=== PATIENT | male | born 1940 | race Caucasian/White ===

== ENCOUNTER 2020-03-29 11:23 | Emergency (ER) | payer MEDICARE, SELFPAY ==
--- NOTE | ~2020-03-29 | CT_ITS ---
EXAMINATION: CTA chest PE protocol EXAM DATE: 03/29/2020 13:17 INDICATION: Chest pain, dyspnea, elevated d-dimer. Shortness of breath. TECHNIQUE: Spiral CTA of the chest (pulmonary arteries) was performed with 100 cc Omnipaque 350 intr avenous contrast injection. Images were acquired during the pulmonary arterial phase. Coronal maxi mum intensity projection 3D-reconstructions were created by the technologist on dedicated workstation . Axial, coronal and sagittal reformatted images were reviewed. The dose-length product (DLP) for t his examination was 558.22 mGy-cm. The exposure was tailored according to patient size (auto mA exp osure control), and iterative reconstruction (ASIR) was used as additional dose reduction technique. There is no prior study for comparison. FINDINGS: There is good pulmonary arterial opacification. The main, central pulmonary arteries are di lated which can indicate elevated pulmonary arterial pressure, pulmonary arterial hypertension. Pulm onary arteries are well opacified and without intraluminal filling defects. No thoracic aortic diss ection. There is mild emphysema. Left basilar linear atelectasis. There are no pleural or pericardia l effusions. Tracheobronchial tree is patent. There is no mediastinal, hilar or axillary lymphade nopathy. There is no pneumothorax. Mild cardiomegaly. There is mild coronary arterial calcificat ion, arterial sclerosis. There is left liver lobe cyst measuring 3 cm. Cholecystectomy clips. Patie nt has diffuse idiopathic skeletal hyperostosis (DISH). There are no osteoblastic or osteolytic les ions identified. There is small sliding gastroesophageal hiatal hernia. IMPRESSION: 1. Dilated pulmonary arteries without emboli. 2. Mild emphysema. 3. Mild cardiomegaly. 4. Small hiatal hernia. Reviewed, dictated and finalized at location A.
--- NOTE | ~2020-03-29 | XR_ITS ---
EXAMINATION: XR chest 2V EXAM DATE: 03/29/2020 12:14 INDICATION: Mid chest pain. TECHNIQUE: Frontal and lateral projections of the chest obtained and reviewed. Comparison is made to prior examination from 02/03/2011. FINDINGS: Mild chronic hyperinflation. The lungs are clear. There are no pleural effusions. The ca rdiomediastinal silhouette is within normal limits. There is no pneumothorax suspected. Patient has diffuse idiopathic skeletal hyperostosis (DISH). There are cholecystectomy clips. IMPRESSION: No acute cardiopulmonary findings. Reviewed, dictated and finalized at location A.
--- NOTE | 2020-03-29 11:27 | ECG_ITS ---
Measurements Intervals [place] Rate: 64 P: 7 IL: 175 QRS: -19 QRSD: 93 T: 23 QT: 397 QTc: 411 Interpretive Statements SINUS RHYTHM INCOMPLETE RIGHT BUNDLE BRANCH BLOCK BASELINE ARTIFACT- II, III, AVR, AVL, AVF BORDERLINE ECG Electronically Signed On 03-29-2020 11:44:17 CDT by Caesar Daniels D.O.
[2020-03-29 11:30] VITALS: BP 189/105; PULSE 66; RESP 24; TEMP 37; O2SAT 95
[2020-03-29 12:06] LABS: Hematocrit 41.7 % (37.0-46.0); Hemoglobin 14.2 g/dL (12.4-15.3); Mean Corpuscular HGB Conc 34.1 g/dL (32.0-36.0); Mean Corpuscular Hemoglobin 32.8 pg (27.0-31.0); Mean Corpuscular Volume 96.3 fL (78.0-102.0); Platelet Count Result 244 K/mm3 (150-420); Red Blood Count 4.33 M/mm3 (4.70-6.10); Red Cell Distribution Width 12.5 % (11.6-14.4); White Blood Count 7.3 K/mm3 (4.8-10.8)
[2020-03-29] MEDS: PANTOPRAZOLE SODIUM IV 40 MG VIAL IV PUSH (12:20)
[2020-03-29 12:24] LABS: Partial Thromboplastin Time 25.3 SEC (22.3-31.6); Prothrombin Time 10.1 Seconds (9.64-11.0)
[2020-03-29 12:28] LABS: D Dimer 1.15 mg/L (0.19-0.50)
[2020-03-29 12:45] LABS: BNP 39 pg/mL (0-100)
[2020-03-29 12:50] LABS: Alanine Aminotransferase 25 U/L (16-63); Albumin Level 3.3 g/dL (3.4-5.0); Alkaline Phosphatase 76 U/L (46-116); Anion Gap 14.8 mmol/L (7-16); Aspartate Amino Transferase 20 U/L (15-37); Bilirubin,Total 0.6 mg/dL (0.00-1.00); Blood Urea Nitrogen 21 mg/dL (7-18); Calcium 8.6 mg/dL (8.5-10.1); Carbon Dioxide 25 mmol/L (21-32); Chloride 105 mmol/L (98-108); Estimated Glomerular Filt Rate > 60; Glucose 99 mg/dL (70-99); Osmolality Calculated 295 mOsm/kg (285-295); Potassium 3.8 mmol/L (3.5-5.1); Sodium 141 mmol/L (136-145); Total Protein 6.6 g/dL (6.4-8.2); Troponin I 0.04 ng/mL (0.00-0.056)
[2020-03-29 12:58] LABS: Lipase 85 U/L (73-393)
[2020-03-29 13:00] VITALS: BP 136/71; PULSE 55; RESP 21; O2SAT 95
--- NOTE | 2020-03-29 13:39 | ED.CHESTPAIN ---
HPI - Chest Pain General Chief Complaint: Chest Pain Stated Complaint: chest pains sunday and slight today Source: patient and family Mode of arrival: ambulatory Limitations: no limitations History of Present Illness HPI narrative: patient is a 79-year-old gentleman that presents with some off and on hurt epigastric and radiating into his upper neck area currently has resolved with a episode of shortness of breath some epigastric tenderness and some mild burning but does describe his pain is a pressure-like sensation that had started Sunday that resolved and recurred earlier this morning and currently has resolved. Has a history of hypertension hyperlipidemia and mild dementia. complaint: chest pain Onset (ago): day(s) Timing of current episode: episodic Prior episodes: Yes Onset: during rest Pain location: epigastric and subxiphoid Pain radiation: none Severity: similar to previous episodes ( currently no chest pain or shortness of breath) Quality: tightness and aching Relieving factors: nothing Exacerbating factors: nothing Related Data Home Medications Medication Instructions Recorded Confirmed lovastatin 40 mg PO DAILY 07/25/19 03/29/20 verapamil 120 mg PO DAILY 07/25/19 03/29/20 donepezil 5 mg PO DAILY 03/29/20 03/29/20 Allergies Allergy/AdvReac Type Severity Reaction Status Date / Time No Known Allergies Allergy Unverified 07/25/19 08:29 Review of Systems Review of Systems: All systems reviewed & are unremarkable except as noted in HPI and below PMFSH Past Medical History Medical History Dementia GERD (gastroesophageal reflux disease) HLD (hyperlipidemia) Vertigo Surgical History Surgical History H/O left knee surgery H/O right knee surgery Hx of cholecystectomy Family History Family History Sibling Family history of malignant neoplasm of urinary bladder Family history of cardiovascular disease Grandparent Acute myocardial infarction Cerebrovascular accident Father Acute myocardial infarction, Onset Age: 64 Mother Family history of malignant neoplasm, Onset Age: 86 Social History Social History Smoking status: Never smoker Second hand tobacco smoke exposure: No Alcohol intake: never Additional living arrangements comments: with his Exam Const: General: no acute distress and alert HENMT: Head: normal to inspection Eyes: Conjunctivae: conjunctivae normal Pupils: Equal, round and reactive pupils present Neck: Neck: normal visual inspection, no lymphadenopathy and no meningeal signs Chest: Chest palpation & inspection: normal inspection of the chest Resp: Effort & Inspection: normal respiratory effort Auscultation: clear to auscultation bilaterally Cardio: Rate: regular rate Rhythm: regular rhythm GI: Auscultation: normal bowel sounds Urinary Catheter: Urinary Catheter: patent and draining Skin: General skin exam: normal color Rashes: no rashes Neuro: General: patient oriented x3, moves all extremities, no meningeal signs and no focal motor deficits Extrem: General: normal to inspection and no pedal edema Psych: Appearance: grossly normal Mental Status: mental status grossly normal Course Course Emergency Course: Patient currently resting comfortably, after the IV contrast for CTA did develop some mild dizziness which his hence subsided. Currently there is no chest pain no shortness of breath no nausea vomiting or abdominal pain instructed patient and family to follow-up with primary care physician as soon as possible for further outpatient evaluation. Vital Signs Vital signs: Vital Signs Temperature 37.0 C 03/29/20 11:30 Pulse Rate 66 03/29/20 11:30 Respiratory Rate 24 H 07
[2020-03-29 13:40] VITALS: BP 143/81; PULSE 57; O2SAT 95
== END 2020-03-29 13:53 | disposition home or self-care (01) ==
PROVIDERS: Emergency Provider Emergency Medicine; PCP Physician Assistant
DX: R07.9 Chest pain, unspecified (principal); R06.02 Shortness of breath; K21.9 Gastro-esophageal reflux disease without esophagitis; E78.5 Hyperlipidemia, unspecified
CPT/HCPCS: 36415; 71046; 71275; 80053; 83690; 83880; 84484; 85027; 85380; 85610; 85730; 93005; 96374; 99284; C9113; Q9965

== ENCOUNTER 2020-04-15 13:53 | Outpatient (CLI) | payer MEDICARE, SELFPAY ==
--- NOTE | ~2020-04-15 | XR_ITS ---
XR knee RT 2V DATE: 04/15/2020 14:16 INDICATION: Right knee pain TECHNIQUE: AP and lateral views COMPARISON: None FINDINGS: Status post medial compartment joint replacement. There is moderate osteoarthritic change at the lateral and patellofemoral compartments. No fracture or dislocation. There is mild suprapatellar knee joint effusion. Approximately 1.8 x 3.8 mm calcification overlying the suprapatellar bursa, possibly an intra-articular loose body versus sof t tissue calcification. 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
== END 2020-04-15 13:54 | disposition home or self-care (01) ==
LOC: CHSIMG 13:54
PROVIDERS: PCP Physician Assistant; Visit Provider Physician Assistant
DX: M25.561 Pain in right knee (principal)
CPT/HCPCS: 73560

== ENCOUNTER 2020-05-24 07:56 | Outpatient (CLI) | payer MEDICARE, SELFPAY ==
--- NOTE | ~2020-05-24 | NM_ITS ---
EXAMINATION: NM leonora stress w perfusion DATE: 05/24/2020 12:47 INDICATION: Chest pain TECHNIQUE: Rest images were obtained following intravenous administration of 9.4 mCi Tc99m tetrofosmi n (Myoview). The patient was infused intravenously with Lexiscan (Regadenoson). Then, 28 mCi Tc99m te trofosmin (Myoview) was administered intravenously, and stress images were obtained. Data was reconst ructed into short axis and horizontal and vertical long axis SPECT images. Gated SPECT images were al so obtained. COMPARISON: None. FINDINGS: Borderline decreased perfusion at the apical inferior and apical lateral segments on the st ress images which is significantly smaller and less severe than on the rest images which favors diaph ragmatic attenuation artifact over infarct. No reversible ischemia. There is normal left ventricular chamber size, wall motion and ejection fraction. Left ventricular ejection fraction measures 70%. IMPRESSION: 1. Small region of either mild infarct or more likely diaphragmatic attenuation artifact at the apica l lateral and apical inferior segments. No reversible ischemia. 2. Left ventricular ejection fraction measuring 70%. Reviewed, dictated and finalized at location A. IMPRESSION: 1. Small region of either mild infarct or more likely diaphragmatic attenuation artifact at the apical lateral and apical inferior segments. No reversible isc hemia. 2. Left ventricular ejection fraction measuring 70%.
--- NOTE | 2020-05-24 08:18 | ECHO_ITS ---
Patient Info Name: Darrell Clark Age: 79 years : 1940 Gender: Male Ht: 68 in Wt: 295 lbs BSA: 2.60 m2 HR: 60 bpm BP: 175 / 88 mmHg Technical Quality: Good Exam Date: 05/24/2020 8:38 AM Exam Location: [facility] Pulmonary Patient Status: Outpatient Admit Date: 05/24/2020 Staff Ordering Physician: Caesar Daniels DO Attending Provider: Caesar Daniels DO Referring Physician: Jeremiah KIRAN; Exam Type: CA echo doppler color flow Study Info Indications R06.00 - Dyspnea, unspecified Complete two-dimensional, color flow and Doppler transthoracic echocardiogram is performed. Summary 1. Complete two-dimensional, color flow and Doppler transthoracic echocardiogram is performed. 2. Left ventricular chamber dimension is normal. 3. Left ventricular systolic function is normal, estimated at 60-65%. 4. The left ventricular diastolic function is grade I diastolic dysfunction. 5. E/e' 12 is mildly elevated. 6. Left atrial chamber dimension is mildly enlarged. 7. There is mild aortic valve sclerosis. 8. There is trace aortic valve regurgitation. 9. The mitral valve has mildly calcified annulus. 10. There is trace mitral valve regurgitation. 11. There is mild tricuspid valve regurgitation. 12. Mild pulmonary hypertension, estimated pulmonary arterial systolic pressure is 45 mmHg. Left Ventricle E/e' 12 is mildly elevated. Left ventricular chamber dimension is normal. Left ventricular systolic function is normal, estimated at 60-65%. The left ventricular diastolic function is grade I diastolic dysfunction. Right Ventricle Right ventricular chamber dimension is normal. Right ventricular systolic function is normal. Left Atria Left atrial chamber dimension is mildly enlarged. Right Atria Right atrial chamber dimension is normal. Aortic Valve The aortic valve is trileaflet. There is mild aortic valve sclerosis. There is no aortic valve stenosis. There is trace aortic valve regurgitation. Pulmonic Valve There is no pulmonic regurgitation. Mitral Valve The mitral valve has mildly calcified annulus. There is no mitral valve stenosis. There is trace mitral valve regurgitation. Tricuspid Valve There is mild tricuspid valve regurgitation. Mild pulmonary hypertension, estimated pulmonary arterial systolic pressure is 45 mmHg. Pericardium/Pleural There is no pericardial effusion. Inferior Vena Cava Normal inferior vena cava with >50% collapse upon inspiration consistent with normal right atrial pressure, 5 mmHg. Aorta The aortic root size at the sinus of Valsalva is normal. Left Ventricular Outflow Tract Name Value Normal LVOT 2D LVOT Diameter 2.0 cm LVOT Doppler LVOT Peak Gradient 5 mmHg LVOT Mean Gradient 3 mmHg LVOT VTI 28 cm LVOT VTI/AV VTI Ratio 0.7 LVOT Stroke Volume 88 ml LVOT CO 4.5 l/min LVOT CI 1.7 l/min/m2 Pulmonic Valve
--- NOTE | 2020-05-24 08:18 | EST_ITS ---
Patient Info Name: Drarell Clark Age: 79 years : 1940 Gender: Male Ht: 68 in Wt: 195 lbs BSA: 2.08 m2 Exam Date: 05/24/2020 10:50 AM Exam Location: [facility] Stress Patient Status: Outpatient Admit Date: 05/24/2020 Staff Ordering Physician: Caesar Portillo DO Attending Provider: CAESAR PORTILLO DO Exercise Technologist: Lizzie Franco RDCS Exercise Physician: Caesar Portillo DO Exam Type: CA stress leonora w NM Study Info Indications R06.00 - Dyspnea, unspecified A regadenoson stress test was performed. Summary 1. 1. Negative lexiscan stress test for ischemic ST changes by ECG criteria. 2. 2. Stable hemodynamics throughout the test. 3. 3. Nuclear scan to follow and will be reported separately. Please correlate with it. 4. 4. Patient informed of the above results. Protocol: Lexiscan Stress ECG Details Stage: REST Duration (min): 7 min : 27 sec HR (bpm): 57 SBP (mmHg): 144 DBP (mmHg): 84 Stage: REST Duration (min): 9 min : 46 sec HR (bpm): 58 SBP (mmHg): 144 DBP (mmHg): 84 Stage: REST Duration (min): 10 min : 8 sec HR (bpm): 58 SBP (mmHg): 144 DBP (mmHg): 84 Stage: REST Duration (min): 20 min : 30 sec HR (bpm): 48 SBP (mmHg): 144 DBP (mmHg): 84 Stage: STAGE 1 Duration (min): 0 min : 59 sec HR (bpm): 66 SBP (mmHg): 150 DBP (mmHg): 94 Stage: RECOVERY Duration (min): 1 min : 0 sec HR (bpm): 73 SBP (mmHg): 147 DBP (mmHg): 89 Stage: RECOVERY Duration (min): 2 min : 0 sec HR (bpm): 70 SBP (mmHg): 147 DBP (mmHg): 89 Stage: RECOVERY Duration (min): 3 min : 0 sec HR (bpm): 68 SBP (mmHg): 146 DBP (mmHg): 87 Stage: RECOVERY Duration (min): 3 min : 7 sec HR (bpm): 69 SBP (mmHg): 146 DBP (mmHg): 87 Rest HR: 48 bpm Peak HR: 73 bpm Rest Sys BP: 144 mmHg Peak Sys BP: 150 mmHg Max Pred HR: 139 bpm % Max Pred HR: 53 % Target HR: 118 bpm Max RPP: 10,950 bpm*mmHg Termination Reason: Completed protocol Cardiac Symptoms: None Total Time: 1 min : 0 sec Rest Stock BP: 84 mmHg Peak Stock BP: 94 mmHg Total Dose: 0.4 mg Resting ECG Sinus rhythm. Stress ECG No ST changes. Arrhythmias None. Report Signatures
== END 2020-05-24 07:57 | disposition home or self-care (01) ==
PROVIDERS: PCP Physician Assistant; Visit Provider Internal Medicine Cardiovascular Disease
DX: R07.9 Chest pain, unspecified (principal); R06.00 Dyspnea, unspecified; R94.39 Abnormal result of other cardiovascular function study; I08.2 Rheumatic disorders of both aortic and tricuspid valves; I27.0 Primary pulmonary hypertension
CPT/HCPCS: 78452; 93017; 93306; A9502; J2785

== ENCOUNTER 2022-02-08 10:20 | Outpatient (CLI) | payer MEDICARE, SELFPAY ==
--- NOTE | ~2022-02-08 | XR_ITS ---
XR hip LT min 2V 02/08/2022 11:00 Indication: Left hip pain Procedure: 2 views left hip Comparison: No prior studies for comparison. Findings: There is a left total hip arthroplasty. Prosthesis well seated. No acute fracture or trauma tic malalignment. No soft tissue abnormality. No foreign body. Impression: 1: No acute bone or joint abnormality. Reviewed, dictated and finalized at location A. Impression: 1: No acute bone or joint abnormality.
== END 2022-02-08 10:21 | disposition home or self-care (01) ==
LOC: CHSIMG 10:30
PROVIDERS: PCP Physician Assistant; Visit Provider Physician Assistant
DX: M25.552 Pain in left hip (principal)
CPT/HCPCS: 73502

== ENCOUNTER 2022-11-08 14:18 | Outpatient (CLI) | payer MEDICARE, SELFPAY ==
--- NOTE | ~2022-11-08 | XR_ITS ---
XR shoulder LT min 2V 11/08/2022 14:52 Indication: Left shoulder pain after fall one week ago Procedure: 4 views left shoulder Comparison: 01/31/2011 Findings: There is severe glenohumeral joint osteoarthritis with marginal osteophytosis and loose bod ies adjacent to the joint space. Osteopenia. No acute fracture or traumatic malalignment. Impression: 1: No acute fracture. Reviewed, dictated and finalized at location B. LITION ENGINEER Impression: 1: No acute fracture.
== END 2022-11-08 14:19 | disposition home or self-care (01) ==
LOC: CHSIMG 14:28
PROVIDERS: PCP Physician Assistant; Visit Provider Physician Assistant
DX: M25.512 Pain in left shoulder (principal)
CPT/HCPCS: 73030